=== PATIENT | male | born 1960 | race Hispanic/Latino ===

== ENCOUNTER → 2023-02-09 | Outpatient (CLI) | payer OTHER ==
[~2023-02-09] MED LIST: ALBUMIN (HUMAN) 5% 500 ML IV ONE; AMLO-257 PO; CARV12.511 PO; CHLO25TA3 PO; DOCU100C33 PO; EMPA25TA PO; GABA-529 PO; IOHEXOL 350 MG/ML 100ML INFUS..BTL IV ONE; LISI40TA9 PO; PIOG30TA70 PO; TAMS-1 PO
== END | disposition home or self-care (01) ==
LOC: RAH 07:50
PROVIDERS: ATTEND Surgery
DX: C18.2 Malignant neoplasm of ascending colon (principal); M47.817 Spondylosis without myelopathy or radiculopathy, lumbosacral region; M43.17 Spondylolisthesis, lumbosacral region
CPT/HCPCS: 71260; 74177; Q9967; P9045